=== PATIENT | female | born 1990 | race American Indian/Alaskan Native ===

== ENCOUNTER 2019-03-03 05:05 | Inpatient (IN) | payer MEDICAID ==
[2019-03-03] MEDS ORDERED: LACTATED RINGERS 1,500 ML IV NR (06:00)
[2019-03-03] MEDS ORDERED: REGLAN IV ONE (06:48)
[2019-03-03] MEDS ORDERED: PEPCID IV ONE (06:48)
[2019-03-03] MEDS ORDERED: BICITRA PO ONE (06:48)
[2019-03-03 06:51] LABS: Hematocrit 29.1 % (30.3-42.9); Hemoglobin 9.1 gm/dl (10.1-14.3); Mean Corpuscular HGB Conc 31 % (30-34); Mean Corpuscular Volume 79 fl (79-97); Red Blood Count 3.69 M/mm3 (3.65-5.03)
[2019-03-03] MEDS ORDERED: ANCEF/STERILE WATER 2 GM/20 ML 2 GM/20 ML SYRINGE IV NR (07:00)
[2019-03-03] MEDS ORDERED: LACTATED RINGERS 1,000 ML IV SCH (07:00)
[2019-03-03 07:03] LABS: Platelet Count 333 K/mm3 (140-440); Red Cell Distribution Width 20.5 % (13.2-15.2)
[2019-03-03] MEDS ORDERED: SUBLIMAZE ONE ×2 (07:24→10:02)
[2019-03-03] MEDS ORDERED: NACL 0.9% IR ONE (08:20)
[2019-03-03] MEDS ORDERED: WATER FOR IRRIG STERILE IR ONE (08:20)
--- NOTE | 2019-03-03 08:24 | History and Physical Report ---
History of Present Illness Date of examination: 03/03/19 Date of admission: 03/03/19 05:05 Chief complaint: Here for an elective repeat delivery. History of present illness: . JASON 03/09/2019. care with [facility]. uncomplicated. Past History Past Medical History: no pertinent history - Obstetrical History : 7 Medications and Allergies Allergies Allergy/AdvReac Type Severity Reaction Status Date / Time No Known Allergies Allergy Unverified 03/03/19 05:36 Home Medications Medication Instructions Recorded Confirmed Last Taken Type Pnv Plus Multivit Tab 1 tab PO 03/03/19 1 Week Ago History ~02/24/19 1 Active Meds: Active Medications Oxytocin/Sodium Chloride (Pitocin/Ns 20 Unit/1000ml Drip) 20 units in 1,000 mls @ 0 mls/hr IV TITR JATINDER Lactated Ringer's (Lactated Ringers) 1,000 mls @ 2,250 mls/hr IV PREOP JATINDER Stop: 03/04/19 07:27 Cefazolin Sodium (Ancef/Sterile Water 2 Gm/20 Ml) 2 gm in 20 mls @ 80 mls/hr IV PREOP NR; Protocol Stop: 03/03/19 23:45 Review of Systems All systems: negative - Vital Signs Vital signs: Vital Signs Pulse BP 86 104/69 03/03/19 06:07 03/03/19 06:07 Temp Pulse Resp BP Pulse Ox 98.5 F 90 18 122/73 03/03/19 07:18 03/03/19 07:18 03/03/19 07:18 03/03/19 07:18 - Physical Exam Breasts: Positive: deferred Cardiovascular: Regular rate Lungs: Positive: Clear to auscultation Abdomen: Positive: normal appearance, distention Uterus: Positive: enlarged, other (consistent with gestational age.) - Obstetrical FHR: category 1 Results Result Diagrams: 03/03/19 05:39 Abnormal lab results 03/03/19 Range/Units 05:39 Hgb 9.1 L (10.1-14.3) gm/dl Hct 29.1 L (30.3-42.9) % MCH 25 L (28-32) pg RDW 20.5 H (13.2-15.2) % All other labs normal. Assessment and Plan - Patient Problems (1) Previous section Current Visit: Yes Status: Acute (2) Delivery by elective section Current Visit: Yes Status: Acute Plan to address problem: delivery will get under way in a few moments. Risks fully discussed and patient consented.
[2019-03-03] MEDS: PITOCin/NS 20 UNIT/1000ML DRIP 20 UNITS/1,000 ML BAG IV SCH ×2 (08:58→10:29)
[2019-03-03] MEDS ORDERED: TORADOL ONE (10:06)
[2019-03-03] MEDS ORDERED: NARCAN 0.4 MG/1 ML IV PRN ×2 (10:25→11:00)
[2019-03-03] MEDS ORDERED: DILAUDID IV PRN (10:25)
[2019-03-03] MEDS ORDERED: PHENERGAN PR PRN (10:25)
[2019-03-03] MEDS ORDERED: PHENERGAN PO PRN (10:25)
[2019-03-03] MEDS ORDERED: ZOFRAN IV PRN ×2 (10:25→11:00)
--- NOTE | 2019-03-03 10:26 | Operative Report ---
Operative Report Operative Report: Date of surgery: 03/03/2019 Admitting diagnosis: Term , 4 previous sections, probable peritoneal adhesions. Procedures: Low transverse section and lysis of adhesions. Surgeon: Arslan Luna MD Credit Relationship Manager: Veronica Shah CRNA Anesthesia: Spinal blockade Estimated blood loss: 700 mL Complications: None Findings: There was a live baby girl in cephalic presentation. Both fallopian tubes and ovaries were grossly normal. The uterus was bound on the right side by a thick band of avulsed strap of recti abdominis muscle from the prior event. The right rectus abdominis muscle flap was then traced to the attachment of the symphysis pubis and was found to be deficient. There was a father bound off the inferior margin of the greater omentum to the anterior parietal peritoneum which attachment was inferior to the umbilicus. Procedure in details: Patient was taken to the operative room and given spinal blockade. The patient was then placed in the straight supine position with a slight left lateral tilt. Indwelling fullness catheter was placed. The abdomen was prepped. The drapes were placed. A timeout was done. With the go ahead from the theatrical variety agent a Pfannenstiel incision was made, placed over a previously existing scar. This incision was carried across the subcu taneous layer allowing the fascia to be cut transversely. The rectus abdominis muscle flaps were then dissected free from the fascia. The anterior parietal peritoneum was identified and breached. The laparotomy was widened by marginal stretching. The uterovesical peritoneal flap was divided transversely after the bladder blade had been placed. The uterine incision was placed in the lower segment transversely. The cavity of the uterus was entered bluntly by poking through with the index finger. The amniotic sac was ruptured with clear fluid the head of the was lifted out of the false pelvis and delivered through the incision by fundal pressure. The airways were bulb suctioned beginning with the mouth. The umbilical cord was double clamped and divided and the baby was handed off safely to the pediatric team. The placenta was manually removed from the uterine cavity and appeared to be apparent in its attachment on the anterior wall of the uterus. The uterine cavity was explored and was empty of any placental remnants. The uterine incision was repaired in 3 layers using 0 Vicryl. Both adhesions described above were divided after carefully identifying all the involved structures. The pedicles were tied off with 0 Vicryl. Blunt and clots were cleared from the peritoneal cavity. Hemostasis within the pelvis was challenging but that required time necessary to establish satisfactory hemostasis was devoted to this. After determining satisfactory hemostasis within the peritoneal cavity the anterior parietal peritoneum was closed with 0 Vicryl. The fascia was closed with 0 Vicryl. The skin was closed subcuticularly with 4-0 Vicryl on a Nick needle. The estimated blood loss was 700 mL. There were no complications. All sponges and instruments were accounted for. The patient was transferred to the recovery room in very good condition.
[2019-03-03] MEDS ORDERED: TUCKS PAD TP PRN (10:30)
[2019-03-03] MEDS ORDERED: LANSINOH TP PRN (10:30)
--- NOTE | 2019-03-03 10:30 | Anesthesia Consultation ---
Anesthesia Consult and Med Hx Date of service: 03/03/19 - Airway Anesthetic Teeth Evaluation: Good ROM Head & Neck: Adequate Mental/Hyoid Distance: Adequate Mallampati Class: Class II Intubation Access Assessment: Probably Good - Pulmonary Exam CTA: Yes - Cardiac Exam Cardiac Exam: RRR - Pre-Operative Health Status ASA Pre-Surgery Classification: ASA2 Proposed Anesthetic Plan: Epidural - Pulmonary Hx Smoking: No Hx Asthma: No Hx Respiratory Symptoms: No SOB: No COPD: No Home Oxygen Therapy: No Hx Pneumonia: No Hx Sleep Apnea: No - Cardiovascular System Hx Hypertension: No Hx Coronary Artery Disease: No Hx Heart Attack/AMI: No Hx Angina: No Hx Percutaneous Transluminal Coronary Angioplasty (PTCA): No Hx Cardia Arrhythmia: No Hx Pacemaker: No Hx Internal Defibrillator: No Hx Valvular Heart Disease: No Hx Heart Murmur: No Hx Peripheral Vascular Disease: No - Central Nervous System Hx Neuromuscular Disorder: No Hx Seizures: No CVA: No Hx Back Pain: No Hx Psychiatric Problems: No - Gastrointestinal Hx Ulcer: No Hx Gastroesophageal Reflux Disease: No - Endocrine Hx Renal Disease: No Hx End Stage Renal Disease: No Hx Cirrhosis: No Hx Liver Disease: No Hx Insulin Dependent Diabetes: No Hx Non-Insulin Dependent Diabetes: No Hx Thyroid Disease: No Hx Hypothyroidism: No Hx Hyperthyroidism: No - Hematic Hx Anemia: No Hx Sickle Cell Disease: No - Other Systems Hx Alcohol Use: No Hx Substance Use: No Hx Cancer: No Hx Obesity: Yes (BMI 34)
--- NOTE | 2019-03-03 10:30 | Anesthesia Day of Surgery ---
Anesthesia Day of Surgery - Day of Surgery Patient Examined: Yes Patient H&P Reviewed: Yes Patient is NPO: Yes Beta Blockers: No Cardiac Clearance: No Pulmonary Clearance: No Renaldo's Test: N/A
--- NOTE | 2019-03-03 10:31 | Post Anesthesia Evaluation ---
- Post Anesthesia Evaluation Patient Participated: Yes Airway Patent: Yes Stable Respiratory Function: Yes Nausea/Vomiting: No Temp > 96.8F: Yes Pain Manageable: Yes Adequeate Hydration: Yes Block Receding Appropriately: Yes Patient on Ventilator: No
[2019-03-03] MEDS ORDERED: MORPHINE IV PRN (11:00)
[2019-03-03] MEDS ORDERED: SODIUM CHLORIDE FLUSH SYRINGE 10 ML IV PRN (11:00)
[2019-03-03] MEDS ORDERED: D5LR 1,000 ML IV SCH (11:00)
[2019-03-03] MEDS ORDERED: SODIUM CHLORIDE FLUSH SYRINGE 10 ML IV NR (11:00)
[2019-03-03] MEDS: DILAUDID IV PRN ×2 (11:50→18:58)
[2019-03-03] MEDS: TORADOL IV PRN (15:48)
[2019-03-03] MEDS: ANCEF/NS 1 GM/50 ML 1 GM/50 ML BAG IV SCH (16:49)
[2019-03-03] MEDS: IBUPROFEN PO PRN (22:00)
[2019-03-03] MEDS: PERCOCET 5/325 PO PRN (22:01)
[2019-03-03 23:32] LABS: Hematocrit 24.9 % (30.3-42.9); Hemoglobin 8.4 gm/dl (10.1-14.3)
[2019-03-04] MEDS: ANCEF/NS 1 GM/50 ML 1 GM/50 ML BAG IV SCH (00:41)
[2019-03-04] MEDS: IBUPROFEN PO PRN ×3 (03:19→20:31)
[2019-03-04] MEDS: PERCOCET 5/325 PO PRN ×4 (03:20→20:31)
[2019-03-04] MEDS: TORADOL IV PRN (09:25)
--- NOTE | 2019-03-04 10:50 | Progress Note ---
Assessment and Plan A: /postop day 1 S/P repeat section. Anemia secondary to and blood loss. P: Supplement with iron. Encouraged ambulation. Advance diet as tolerated. Subjective - Subjective Date of service: 03/11/19 Principal diagnosis: /postop day 2 S/P repeat section Interval history: /postop day 1 S/P repeat section. Doing well. Reports small amount of lochia. Voiding without difficulty; ambulating well; tolerating a regular diet. Patient denies headache, cough, chest pain, shortness of breath, abdominal pain, leg pain, or heavy bleeding. Patient reports: appetite normal, voiding normally, pain well controlled, flatus, ambulating normally, no dizzy ambulation, no nauseated : doing well Objective - Vital Signs Latest vital signs: Vital Signs Temp Pulse Resp BP BP Pulse Ox 03/04/19 08:07 98.4 F 87 16 105/64 98 03/04/19 04:00 98.3 F 87 20 124/71 100 03/04/19 01:29 97.7 F 87 20 103/54 98 03/03/19 21:20 98.5 F 98 H 20 127/78 100 03/03/19 18:58 18 03/03/19 15:48 18 03/03/19 13:35 20 03/03/19 11:50 18 03/03/19 11:30 98.6 F 80 18 110/66 97 03/03/19 11:06 98.1 F 78 15 101/62 100 03/03/19 10:52 74 15 102/49 100 Intake and Output 03/03/19 03/04/19 03/04/19 23:59 07:59 15:59 Intake Total 1190 Output Total 1200 500 Balance -10 -500 Intake: IV 50 ANCEF/NS 1 GM/50 ML 1 gm 50 In 50 ml @ 100 mls/hr IV Q8H [facility] Rx#:[id number] Oral 1140 Output: Urine 1200 500 Indwelling Catheter 1200 Void 500 Other: Total, Intake Amount 240 Total, Output Amount 400 500 # Voids Void 1 # Bowel Movements 0 - Exam Cardiovascular: Present: Regular rate, Normal S1, Normal S2 Lungs: Present: Clear to auscultation Abdomen: Present: normal appearance, soft, normal bowel sounds. Absent: distention, tenderness, guarding, rigidity Uterus: Present: normal, firm, fundal height below umbilicus. Absent: bogginess, tenderness Extremities: Present: normal. Absent: tenderness, edema Incision: Present: normal, dry, intact - Labs Labs: Abnormal lab results 03/03/19 Range/Units 23:18 Hgb 8.4 L (10.1-14.3) gm/dl Hct 24.9 L (30.3-42.9) %
[2019-03-04] MEDS: PRENATAL VITAMIN PO SCH (11:06)
[2019-03-04] MEDS: MYLICON PO PRN ×3 (11:06→23:23)
[2019-03-04] MEDS: FEOSOL PO SCH (11:06)
[2019-03-04] MEDS: COLACE PO SCH (23:23)
[2019-03-05] MEDS: IBUPROFEN PO PRN ×2 (02:48→15:09)
[2019-03-05] MEDS: PERCOCET 5/325 PO PRN ×3 (02:48→18:29)
[2019-03-05] MEDS: PRENATAL VITAMIN PO SCH (12:15)
[2019-03-05] MEDS: COLACE PO SCH (12:16)
--- NOTE | 2019-03-05 16:09 | Progress Note ---
Assessment and Plan A: /postop day 2 S/P low transverse section with lysis of adhesions. Anemia secondary to and blood loss. P: Continue iron supplementation. Continue ambulation. Subjective - Subjective Date of service: 03/05/19 Principal diagnosis: /postop day 2 S/P repeat low transverse section Interval history: /postop day 2 S/P repeat low transverse section with lysis of adhesions. Doing well. Reports small amount of lochia. Voiding without difficulty; ambulating well; tolerating a regular diet. Passing gas. Patient denies headache, cough, chest pain, dizziness, shortness of breath, abdominal pain, leg pain, or heavy bleeding. Patient reports: appetite normal, voiding normally, pain well controlled, flatus, ambulating normally, no dizzy ambulation, no bowel movement, no nauseated : doing well Objective - Vital Signs Latest vital signs: Vital Signs Temp Pulse Resp BP Pulse Ox 03/05/19 11:59 98.8 F 96 H 16 95/60 99 03/05/19 08:25 98.5 F 82 16 94/57 100 03/05/19 00:04 98.0 F 88 20 83/42 98 03/04/19 16:46 100.0 F H 119 H 20 119/75 99 Intake and Output 03/05/19 03/05/19 03/05/19 07:59 15:59 23:59 Intake Total 120 Balance 120 Intake: Oral 120 Other: Total, Intake Amount 120 # Voids Void 1 - Exam Cardiovascular: Present: Regular rate, Normal S1, Normal S2, No murmurs Lungs: Present: Clear to auscultation Abdomen: Present: normal appearance, soft, normal bowel sounds. Absent: distention, tenderness, guarding, rigidity Uterus: Present: normal, firm, fundal height below umbilicus. Absent: bogginess, tenderness Extremities: Present: normal. Absent: tenderness, edema Incision: Present: normal, dry, intact
[2019-03-05] MEDS: FEOSOL PO SCH (17:51)
[2019-03-06] MEDS: PERCOCET 5/325 PO PRN ×3 (00:22→14:25)
[2019-03-06] MEDS: IBUPROFEN PO PRN ×2 (07:42→14:25)
[2019-03-06] MEDS: COLACE PO SCH (09:38)
[2019-03-06] MEDS: PRENATAL VITAMIN PO SCH (09:38)
[2019-03-06] MEDS ORDERED: FEOSOL PO SCH (10:00)
[2019-03-06] MEDS ORDERED: BENADRYL PO PRN (10:00)
--- NOTE | 2019-03-06 10:45 | Progress Note ---
Assessment and Plan - Patient Problems (1) Delivery by elective section Current Visit: Yes Status: Acute Plan to address problem: D/C home later today Keep incision clean and dry F/U in office in 1 week for incision check (2) Anemia Current Visit: Yes Status: Acute Qualifiers: Anemia type: iron deficiency Iron deficiency anemia type: inadequate dietary iron intake Qualified Code(s): D50.8 - Other iron deficiency anemias Plan to address problem: Continue daily oral iron supplementation as directed Subjective - Subjective Date of service: 03/06/19 Principal diagnosis: /postop day 3 S/P repeat low transverse section Interval history: See admission H & P, OB operative summary and PP progress notes Patient reports: appetite normal, voiding normally, pain well controlled, flatus, ambulating normally, no bowel movement [place]: doing well, bottle feeding Objective - Vital Signs Latest vital signs: Vital Signs Temp Pulse Resp BP BP Pulse Ox 03/06/19 08:26 98.3 F 104 H 18 95/63 03/05/19 23:55 98.1 F 83 20 101/63 100 03/05/19 16:34 98.4 F 100 H 16 104/65 98 03/05/19 11:59 98.8 F 96 H 16 95/60 99 Intake and Output 03/05/19 03/06/19 03/06/19 23:59 07:59 15:59 Intake Total 120 120 480 Balance 120 120 480 Intake: Oral 120 120 480 Other: Total, Intake Amount 120 120 480 # Voids Void 1 - Exam Breasts: Present: deferred Cardiovascular: Present: Regular rate Lungs: Present: Normal air movement Abdomen: Present: soft, tenderness, normal bowel sounds Uterus: Present: firm, fundal height below umbilicus (U-2) Extremities: Present: normal Deep Tendon Reflex Grade: Normal +2 Incision: Present: dry, intact (no signs of infection)
--- NOTE | 2019-03-06 10:52 | Discharge Summary ---
Providers - Providers Date of Admission: 03/03/19 05:05 Date of discharge: 03/06/19 (1200) Attending physician: JAEL LANGLEY MD Primary care physician: JAEL LANGLEY MD Hospitalization Reason for admission: section (repeat), IUP at term Procedure: section Episiotomy: none Laceration: none Incision: dry, intact Other procedures: none complications: none Discharge diagnosis: IUP at term delivered, other (Repeat C/S) baby: female Condition at discharge: Stable Disposition: [id number] TO HOME OR SELFCARE - Discharge Diagnoses (1) Delivery by elective section Status: Acute (2) Anemia Status: Acute Qualifiers: Anemia type: iron deficiency Iron deficiency anemia type: inadequate dietary iron intake Qualified Code(s): D50.8 - Other iron deficiency anemias Plan - Discharge Medications Prescriptions: Ferrous Sulfate [Feosol 325 MG tab] 325 mg PO BID 30 Days #60 tablet - Provider Discharge Summary Activity: routine, no sex for 6 weeks, no heavy lifting 4 weeks, no strenuous exercise Diet: other (Iron rich diet) Instructions: routine Additional instructions: [] Smoking cessation referral if applicable(refer to patient education folder for contact #) [] Refer to [facility]'s [facility] Booklet Call your doctor immediately for: * Fever > 100.5 * Heavy vaginal bleeding ( >1 pad per hour) * Severe persistent headache * Shortness of breath * Reddened, hot, painful area to leg or breast * Drainage or odor from incision. * Keep incision clean and dry at all times and follow doctor's instructions regarding bathing/showering * Continue daily oral iron supplementation as directed - Follow up plan Follow up: JAEL LANGLEY MD [Primary Care Provider] - 7 Days Forms: [facility] Discharge Summary, Discharge Signature Page
[2019-03-06 14:25] VITALS: BP 117/67
== END 2019-03-06 15:45 | disposition home or self-care (01) | DRG 766 ==
LOC: APU 05:05 → UNDOADMIN 05:05 → APU 08:57 → UNDOADMIN 08:57 → OB 11:38
PROVIDERS: ADMIT Obstetrics & Gynecology; ATTEND Obstetrics & Gynecology
PROC: 10D00Z1 Extraction of Products of Conception, Low, Open Approach (ICD-10-PCS; principal; 2019-03-03)
DX: O34.211 Maternal care for low transverse scar from previous cesarean delivery (principal); O99.214 Obesity complicating childbirth; E66.9 Obesity, unspecified; O99.02 Anemia complicating childbirth; D50.8 Other iron deficiency anemias; Z37.0 Single live birth; Z3A.39 39 weeks gestation of pregnancy
CPT/HCPCS: 36415; 85014; 85018; 85027; 86592; 86850; 86900; 86901; 87086; 88307; G0378; J0690; J1170; J1885; J2270; J2590; J2765; J3010; J7120; J7121